=== PATIENT | male | born 1950 | race Caucasian/White ===

== ENCOUNTER → 2024-02-26 12:09 | Outpatient (REF) | payer MEDICARE, SELFPAY ==
[2024-02-26 18:00] LABS: Blood Urea Nitrogen 20 mg/dl (9-20); Carbon Dioxide 22 mmol/L (22-30); Chloride 103 mmol/L (98-107); Glucose 100 mg/dl (70-99); Potassium 4.5 mmol/L (3.5-5.1); Sodium 142 mmol/L (135-145); eGFR 57.29
== END ==
LOC: HWLAB 12:09
PROVIDERS: ATTENDING PHYSICIAN Family Medicine
DX: N18.31 Chronic kidney disease, stage 3a (principal)
CPT/HCPCS: 36415; 80048